=== PATIENT | male | born 1940 | race Caucasian/White ===

== ENCOUNTER 2016-12-18 16:51 | Emergency (ER) | payer MEDICARE, BC ==
[2016-12-18] MEDS ORDERED: ONDANSETRON HCL/PF 2 MG/ML VIAL ONE (17:29)
--- NOTE | 2016-12-18 17:29 | ERNOTE ---
Medical Problem HPI - Narrative Date of Service: 12/18/16 - General Chief Complaint: Nausea/Vomiting Time Seen by Provider: 12/18/16 17:21 Source: patient, family, RN notes reviewed Exam Limitations: no limitations - Immun/Allergies/Home Medications Immunizations: IMMUNIZATION HX Immunizations Up to Date Yes History of Influenza Vaccine More Information Required Hx Pneumococcal Vaccination More Information Required Allergies/Adverse Reactions: Allergies No Known Allergies Allergy (Verified 12/18/16 17:10) Home Medications: HOME MEDICATIONS Acetaminophen [Tylenol] 650 mg PO PRN PRN 01/28/15 [Last Taken Unknown] Aspirin 325 mg PO DAILY 01/28/15 [Last Taken Unknown] Clopidogrel Bisulfate [Plavix] 75 mg PO DAILY 01/28/15 [Last Taken Unknown] Finasteride [Proscar] 5 mg PO DAILY 01/28/15 [Last Taken Unknown] Furosemide [Lasix] 20 mg PO DAILY 01/28/15 [Last Taken Unknown] Insulin Glargine,Hum.rec.anlog [Lantus Solostar] 40 unit SQ HS 01/28/15 [Last Taken Unknown] Insulin Lispro [Humalog Kwikpen U-100] 5 unit SQ 01/28/15 [Last Taken Unknown] Levothyroxine Sodium [Synthroid] 50 mcg PO DAILY 01/28/15 [Last Taken Unknown] Omeprazole [Prilosec] 20 mg PO DAILY 01/28/15 [Last Taken Unknown] Tamsulosin HCl [Flomax] 0.4 mg PO HS 01/28/15 [Last Taken Unknown] Acetaminophen [Tylenol] 1,000 mg PO Q4H PRN #30 tablet 01/30/15 [Last Taken Unknown] Carvedilol [Coreg] 3.125 mg PO BID #60 tablet 01/30/15 [Last Taken Unknown] Lisinopril [Zestril] 5 mg PO DAILY #30 tablet 01/30/15 [Last Taken Unknown] Nitroglycerin [Nitrostat] 0.4 mg SL Q5MIN PRN #7 btl 01/30/15 [Last Taken Unknown] Atorvastatin Calcium [Lipitor] 20 mg PO DAILY 04/24/15 [Last Taken Unknown] Zolpidem Tartrate [Ambien] 5 mg PO HS 04/24/15 [Last Taken Unknown] oxyCODONE HCL/ACETAMINOPHEN [Percocet 5 MG/325 MG] 1 tab PO Q4H PRN #20 tab [Last Taken Unknown] Meclizine HCl [Antivert] 25 mg PO TID PRN #12 tab 12/18/16 [Last Taken Unknown] - History of Present History Narrative: 76 y/o male brought to the ED from home by his son for nausea, vomiting and dizziness that began this morning. He initially thought that his blood sugar was low. He ate a small Snickers bar and then vomited a short time later. He also reports a headache. He denies any diarrhea or abdominal pain. Date (Duration): 12/18/16 Review of Systems - Review of Systems Constitutional: Present: malaise. Absent: recent illness, fever, chills EYE: Present: no symptoms reported ENT: Present: no symptoms reported Respiratory: Absent: shortness of breath, cough, orthopnea Cardiology: Absent: chest pain, palpitations, syncope, edema Gastrointestinal/Abdominal: Present: nausea, vomiting, eating less, drinking less. Absent: diarrhea, constipation, abdominal pain Genitourinary: Present: decreased urinary output. Absent: dysuria, hematuria Musculoskeletal: Present: no symptoms reported Skin: Absent: rash, lesions Neurological: Present: headache, dizziness/light-headedness. Absent: weakness Endocrine: Present: no symptoms reported Hematologic/Lymphatic: Present: no symptoms reported Psych: Present: no symptoms reported - Patient's Past Medical History Patient History - Medical: Diabetes Type 2, Diabetes Type 2 Insulin Dependent, Hypothyroidism, Osteoarthritis Patient History - Cardiac/Respiratory: Peripheral Vascular Disease Patient History - Cancer: Skin Patient History - Surgical Procedures: Back Surgery, Cataracts, Colonoscopy, Cardiac stent, Other Patient History - Other: None - Family History Father Family History - Medical: Family History - Cardiac/Respiratory: Myocardial Infarction - Social History Living Situations: spouse Abuse History: No History of abuse Psych History: No pertinent hx Does anyone smoke in the home?: No Smoking Status: Never smoker Have you smoked in the past 12 months: No Do you dip or chew tobacco: No Alcohol Use: none Drug Use: none - Immunizations Immunizations Up to Date: Yes Hx Pneumococcal Vaccination: More Information Required to Determine History of Influenza Vaccine: More Information Required to Determine Physical Exam - Physical Exam General Appearance: Present: wd/wn, alert, no apparent distress Head Exam: Present: normal inspection Eye Exam: Normal inspection: bilateral, PERRL: bilateral Ears, Nose, Throat: Present: normal ENT inspection Neck: Present: normal inspection, nontender, supple Respiratory: Present: no respiratory distress, normal breath sounds, lungs clear Cardiovascular/Chest: Present: regular rate, rhythm, no murmur Gastrointestinal/Abdominal: Present: nontender, nondistended, soft Back Exam: Present: normal inspection, no CVA tenderness Extremity Exam: Present: normal except - - Left below the knee amputation Neurological Exam: Present: alert, oriented, normal mood/affect, no motor/ sensory deficits Skin Exam: Present: normal color, warm/dry ED Progress - Results and Orders Patient's Lab Results:: I have reviewed the patient's lab results. - Vital Signs Patient's Vital Signs:: I have reviewed the patient's vital signs. Vital Signs: Vital Signs 12/18/16 17:02 Temperature 36.0 C L Pulse Rate 68 Respiratory 15 Rate Blood Pressure 184/76 O2 Sat by Pulse 95 Oximetry - Progress/Reassessment Chief Complaint: Nausea/Vomiting Progress:: Improved Plan - Plan Plan: Symptoms improved with Zofran, IV NS bolus and meclizine, but does still have mild dizziness with movement. Labs show stable renal function and elevated blood glucose. Discussed admission for observation with patient. He cares for his and wants to try to go home. Discharged with meclizine. Reinforced need to return if he starts vomiting again and is not able to tolerate oral intake. Patient in agreement with plan. Departure - Departure Clinical Impression: Dizziness Nausea and vomiting Qualifiers: Vomiting type: unspecified Vomiting Intractability: non-intractable Qualified Code(s): R11.2 - Nausea with vomiting, unspecified Disposition: Home Follow Up Needed Condition: Stable Instructions: Dizziness, [id number]-ln-[id number] Additional Instructions: Rest and drink adequate fluids Monitor your blood sugar Return to ER for worsening symptoms Referrals: Star Kyle MD [Primary Care Provider] - Prescriptions: Meclizine HCl [Antivert] 25 mg PO TID PRN #12 tab PRN Reason: dizziness
[2016-12-18] MEDS: ONDANSETRON HCL/PF 2 MG/ML VIAL IV ONE (17:38)
[2016-12-18 17:39] LABS: Hematocrit 47.4 % (42.0-52.0); Hemoglobin 16.1 gm/dL (13.5-18.0); Mean Cell Volume 89.4 fl (78-100); Mean Corpuscular Hemoglobin 30.4 pg (27-31); Mean Platelet Volume 10.1 fl (6.0-9.5); Neutrophil # 7.7 K/mm3 (1.3-6.0); Neutrophil % 84.7 % (42-75.0); Platelet Count 212 K/mm3 (150-450); Red Cell Distribution Width 13.2 % (11.5-14.0); White Blood Count 9.1 K/mm3 (4.0-10.5)
[2016-12-18] MEDS: NORMAL SALINE 1,000 ML IV ONE (17:44)
[2016-12-18 17:53] LABS: Albumin * 3.9 gm/dl (3.4-5.0); Anion Gap 17.9 mmol/L (6.8-13.8); BUN/Creatinine Ratio 18.1 (9.0-21.6); Bilirubin, Total 1.1 mg/dL (0.0-1.1); Calcium * 9.2 mg/dL (7.9-10.9); Carbon Dioxide 23.2 mmol/L (24-32.6); Potassium 4.1 mmol/L (3.4-4.6); Total Protein 7.6 gm/dL (6.2-8.2)
[2016-12-18] MEDS: ACETAMINOPHEN 325 MG TABLET PO ONE (18:57)
[2016-12-18] MEDS ORDERED: MECLIZINE HCL 25 MG TABLET ONE ×2 (19:41→20:28)
[2016-12-18] MEDS: MECLIZINE HCL 25 MG TABLET PO ONE ×2 (19:42→20:40)
[2016-12-18 19:47] LABS: Urine Bilirubin Negative (NEGATIVE); Urine Blood 25 /ul (NEGATIVE); Urine Ketone Negative (NEGATIVE); Urine Nitrite Negative (NEGATIVE); Urine Protein Negative (NEGATIVE); Urine Specific Gravity 1.015 SP.GR. (1.005-1.030); Urine Urobilinogen Normal (NORMAL); Urine pH 5.5 pH (5.0-7.0)
[2016-12-18 19:56] LABS: Urine Appearance Clear; Urine Color Yellow; Urine WBC None Seen /hpf (0-5)
[2016-12-18 19:57] LABS: Urine Bacteria None Seen; Urine RBC 0-5 /hpf (0-5)
[2016-12-18 20:30] VITALS: BP 188/87
== END 2016-12-18 20:45 | disposition home or self-care (01) ==
LOC: ER 16:51
DX: R11.2 Nausea with vomiting, unspecified (principal); R42 Dizziness and giddiness; Z85.828 Personal history of other malignant neoplasm of skin; Z95.5 Presence of coronary angioplasty implant and graft
CPT/HCPCS: 36415; 80053; 81001; 85025; 96374; 99284; J2405

== ENCOUNTER 2018-10-20 09:37 | Observation (INO) ==
[2018-10-20 12:35] LABS: Hemoglobin 12.4 gm/dL (13.5-18.0); Mean Corpuscular Hemoglobin 31.2 pg (27-31); Mean Corpuscular Hgb Conc 33.5 g/dl (32-36); Neutrophil # 6.3 K/mm3 (1.3-6.0); Neutrophil % 70.7 % (42-75.0); Platelet Count 257 K/mm3 (150-450); Red Blood Count 3.98 M/mm3 (4.7-6.0); Red Cell Distribution Width 13.7 % (11.5-14.0); White Blood Count 8.9 K/mm3 (4.0-10.5)
[2018-10-20 12:46] LABS: ALT 29 U/L (19-67); AST 28 U/L (0-48); Albumin * 3.2 gm/dl (3.4-5.0); Alkaline Phosphatase * 145 U/L (50-170); Bilirubin, Total 1.1 mg/dL (0.0-1.1); Blood Urea Nitrogen 78 mg/dL (6-23); Ca. Corrected For Albumin 9.8 mg/dL (8.4-10.2); Calcium * 9.5 mg/dL (7.9-10.9); Chloride 96 mmol/L (97-106); Glucose * 314 mg/dL (70-110); Sodium 132 mmol/L (132-142); Total Protein 6.9 gm/dL (6.2-8.2)
[2018-10-20 12:48] LABS: Troponin I 0.054 ng/mL (0.00-0.10)
[2018-10-20 12:52] LABS: Hemoglobin A1C 11.9 % (4.00-6.0)
[2018-10-20] MEDS: INSULIN LISPRO 100 UNITS/ML VIAL SC SCH ×3 (13:12→20:38)
[2018-10-20] MEDS: NORMAL SALINE 1,000 ML IV PRN ×2 (13:12→19:04)
[2018-10-20] MEDS ORDERED: NORMAL SALINE 250 ML IV ONE (13:37)
[2018-10-20] MEDS ORDERED: CALCITRIOL 0.25 MCG CAPSULE PO SCH (16:15)
--- NOTE | 2018-10-20 16:39 | PN ---
Tom Note - Interim Date: 10/20/18 Time: 16:30 Narrative: 10/20/18 16:30 I saw Arthur Emery on the medical surgical floor on 10/20/2018 and reviewed available lab results and imaging study. The patient's BUN/creatinine is up to 78 and 3 from 31 and 1.76 on 07/2018. His random blood sugar was 314. His HbA1c was 11.9%. His white blood cell count was 8.9%, with no left shift. His hemoglobin is 12.4 down from 14.1 on 2018, with an MCV of 93, serum ketones were negative, his ABG showed a pH of 7.47/PCO2 29.8/PO2 of 71.8/bicarb of 21/95% saturation. His lactic acid was elevated at 2.5. The patient has acute renal failure ON chronic renal failure and likely prerenal but will do renal ultrasound. His blood pressure went into in the low 90s and we gave him a bolus of 250 mL and increase his IV fluids to 175 mL/h. The patient does admit to diarrhea 2-3 times a day but cannot tell me whether it is a big volume or a small volume diarrhea. His head CT scan showed no acute intracranial process. Will consider doing an MRI of the brain in the morning if mental status does not improve significantly. His chest x-ray showed no acute cardiopulmonary findings. His EKG showed normal sinus rhythm with possible lateral ischemia but his troponin is still within normal limits. His urinalysis and his stool analysis are still pending. Physical therapy saw the patient and is recommending continued physical therapy while in the hospital and recommending home physical therapy. Speech therapy will not be able to see the patient until tomorrow morning. We will start patient on diabetic consistent diet with aspiration precautions if patient will tolerate his p.o. medications without difficulty or choking. I have restarted him on some of his home medications and have put him on basal insulin as well as pre-meal insulin. The patient does not have DKA, no hemorrhagic CVA but still could not rule out ischemic infarct, although unlikely as he has no focal deficit. I still do not have a focus of infection but likely GI, likely viral gastroenteritis from his h/o diarrhea.His low blood pressure, ARF on CRF, lactic acidosis and even AMS could be explained from his dehydration. We will repeat labs in the morning. My clinic visit notes will be my history of present illness for this admission.
[2018-10-20] MEDS ORDERED: ACETAMINOPHEN 500 MG TABLET PO PRN (16:40)
[2018-10-20] MEDS ORDERED: ONDANSETRON HCL/PF 2 MG/ML VIAL IV PRN (16:41)
[2018-10-20 18:50] LABS: Urine Bilirubin Negative (NEGATIVE); Urine Blood Negative /ul (NEGATIVE); Urine Ketone Negative (NEGATIVE); Urine Nitrite Negative (NEGATIVE); Urine Protein Negative (NEGATIVE); Urine Specific Gravity 1.015 SP.GR. (1.005-1.030); Urine Urobilinogen Normal (NORMAL)
[2018-10-20 18:57] LABS: Urine Appearance Clear (CLEAR); Urine Color Yellow
[2018-10-20 18:58] LABS: Urine Bacteria TRACE; Urine Hyaline Cast 0-5 /LPF; Urine RBC 0-5 /hpf (0-5)
[2018-10-20] MEDS ORDERED: TAMSULOSIN HCL 0.4 MG CAP.SR.24H PO SCH (21:00)
[2018-10-20] MEDS ORDERED: FAMOTIDINE 20 MG TABLET PO SCH (21:00)
[2018-10-21] MEDS: NORMAL SALINE 1,000 ML IV PRN ×2 (00:49→06:34)
[2018-10-21 05:36] LABS: Hematocrit 37.3 % (42.0-52.0); Hemoglobin 12.1 gm/dL (13.5-18.0); Mean Cell Volume 94.9 fl (78-100); Mean Corpuscular Hemoglobin 30.8 pg (27-31); Mean Corpuscular Hgb Conc 32.4 g/dl (32-36); Mean Platelet Volume 9.9 fl (8-11.3); Neutrophil # 5.1 K/mm3 (1.3-6.0); Neutrophil % 67.8 % (42-75.0); Platelet Count 196 K/mm3 (150-450); Red Blood Count 3.93 M/mm3 (4.7-6.0); Red Cell Distribution Width 13.8 % (11.5-14.0); White Blood Count 7.5 K/mm3 (4.0-10.5)
[2018-10-21 05:51] LABS: Anion Gap 15.5 mmol/L (6.8-13.8); BUN/Creatinine Ratio 29.3 (9.0-21.6); Carbon Dioxide 23.5 mmol/L (24-32.6); Estimated Creat Clear 29.7
[2018-10-21] MEDS: INSULIN LISPRO 100 UNITS/ML VIAL SC SCH ×2 (06:36→12:06)
[2018-10-21] MEDS ORDERED: LEVOTHYROXINE SODIUM 50 MCG TABLET PO SCH (07:00)
--- NOTE | 2018-10-21 08:00 | PN ---
Tom Note - Interim Date: 10/21/18 Time: 07:58 Narrative: 10/21/18 07:58 patient is AAO X 3. he is not slurring his speech anymore. will continue with IVF to improve renal function. Cr has improved. likely discharge this p.m. to [facility] for PT strengthening exercise. follow up LAW.
[2018-10-21] MEDS ORDERED: CLOPIDOGREL BISULFATE 75 MG TABLET PO SCH (09:00)
[2018-10-21] MEDS ORDERED: METOPROLOL TARTRATE 100 MG TABLET PO SCH (09:00)
[2018-10-21] MEDS ORDERED: INSULIN GLARGINE,HUM.REC.ANLOG 100 UNITS/ML VIAL SC SCH (09:00)
[2018-10-21] MEDS ORDERED: FINASTERIDE 5 MG TABLET PO SCH (09:00)
[2018-10-21] MEDS ORDERED: DULoxetine HCL 20 MG CAPSULE.SA PO SCH (09:00)
[2018-10-21] MEDS ORDERED: ISOSORBIDE MONONITRATE 30 MG TAB.SR.24H PO SCH (09:00)
--- NOTE | 2018-10-21 12:04 | DS ---
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 (6) CAD (coronary artery disease) Problem: Chronic Qualifiers: (7) CRF (chronic renal failure) Problem: Chronic Qualifiers: Chronic kidney disease stage: stage 4 (severe) Qualified Code(s): N18.4 - Chronic kidney disease, stage 4 (severe) (8) Diabetes mellitus Problem: Chronic Qualifiers: Diabetes mellitus type: type 2 Diabetes mellitus intermediate frame tender insulin use: with intermediate frame tender use Diabetes mellitus complication status: with kidney complications Diabetes mellitus complication detail: with chronic kidney disease Chronic kidney disease stage: stage 4 (severe) Qualified Code(s): E11.22 - Type 2 diabetes mellitus with diabetic chronic kidney disease; N18.4 - Chronic kidney disease, stage 4 (severe); Z79.4 - bed bug exterminator (current) use of insulin (9) Hypertension Problem: Chronic Qualifiers: Hypertension type: essential hypertension Qualified Code(s): I10 - Essential (primary) hypertension (10) Hypothyroidism Problem: Chronic Qualifiers: Hypothyroidism type: unspecified Qualified Code(s): E03.9 - Hypothyroidism, unspecified (11) Peripheral vascular disease due to secondary diabetes Problem: Chronic Description of Stay: Arthur Emery is a 77-year-old white male who was admiitted to hospital on 10/20/2018 for AMS and frequent falls. Hepresented to the office today for an E.R. follow up for falls. The patient's blood sugar had been running high at home. It was 345 in the office on the morning of his visit. This was despite him having not eaten and still taking his insulin this morning. The patient had fallen 5-6 times in the last month as per daughter. The patient was confused and was having a hard time following conversation. When asked the patient if he knew where he was, the date, day and year and he was unable to answer these questions. As per daughter she had noticed that he had been slurring his speech and acting confused. He also had been noticed to be having generalized weakness and frequent falls. He was brought to the emergency room on 10/11/2018 because of a fall. They did an x-ray of his ribs and thoracic spine which was negative for acute osseous findings. The daughter is very worried about his safety at home. The patient was then admitted for observation and further evaluation. The patient's BUN/creatinine was up to 78 and 3 from 31 and 1.76 on 07/2018. His random blood sugar was 314. His HbA1c was 11.9%. His white blood cell count was 8.9%, with no left shift. His hemoglobin is 12.4 down from 14.1 on 2018, with an MCV of 93, serum ketones were negative, his ABG showed a pH of 7.47/PCO2 29.8/PO2 of 71.8/bicarb of 21/95% saturation. His lactic acid was elevated at 2.5. The patient has acute renal failure on chronic renal failure and likely prerenal . His blood pressure went into in the low 90s and we gave him a bolus of 250 mL and increase his IV fluids to 175 mL/h. The patient did admit to diarrhea 2-3 times a day but he could not tell me whether it was a big volume or a small volume diarrhea. His head CT scan showed no acute intracranial process. I considered doing an MRI of the brain in the morning if mental status does not improved but it did. His EKG showed normal sinus rhythm with possible lateral ischemia but his troponin is still within normal limits. His urinalysis showed likely a contmainated specimen. He did not have diarrhea overnight. Physical therapy saw the patient and is recommending continued physical therapy while in the hospital and recommending home physical therapy. The patient did not have DKA, no hemorrhagic CVA. His AMS, falls, ARF , lactic acidosis were likely due to dehydration from diarrhea and poor oral intake. He is more awake , alert, oriented this morning and is no longer slurring his speech. He is stable to be discharged to [facility] assisted living for PT and strengthening exercises prior to going home. Procedures Performed: none Results and Findings: Lab Pending Results 10/20/18 12:15: WBC 8.9, RBC 3.98 L, Hgb 12.4 L, Hct 37.0 L, MCV 93.0, MCH 31.2 H, MCHC 33.5, RDW 13.7, Plt Count 257, MPV 10.0, Immature Gran % (Auto) 0.80 H, Immature Gran # (Auto) 0.07 H, Neutrophils % 70.7, Lymphocytes % 17.8 L, Monocytes % 6.2, Eosinophils % 3.0, Basophils % 1.5 H, Nucleated RBC % 0.0, Neutrophils # 6.3 H, Lymphocytes # 1.59, Monocytes # 0.6, Eosinophils # 0.3, Absolute Basophils 0.1 10/20/18 12:15: Sodium 132, Plasma Sodium 135, Potassium 4.0, Chloride 96 L, Carbon Dioxide 24.0, Anion Gap 16.0 H, BUN 78 H D, Creatinine 3.00 H D, Est GFR (Non-Af Amer) 22 L D, BUN/Creatinine Ratio 26.0 H, Random Glucose 314 H, Calcium 9.5, Calcium Adj for Albumin 9.8, Total Bilirubin 1.1, AST 28, ALT 29, Alkaline Phosphatase 145, Troponin I 0.054, Total Protein 6.9, Albumin 3.2 L, Serum Ketones Negative 10/20/18 12:15: Mean Blood Glucose 310, Hemoglobin A1c 11.9 H 10/20/18 12:27: pCO2 29.8 L, pO2 71.8 L, HCO3 21.0, Total CO2 21.9, Base Excess -1.7, ABG pH 7.47 H, ABG O2 Sat (Measured) 95.5 10/20/18 12:35: Lactic Acid, Venous 2.5 H* 10/20/18 17:20: Lactic Acid, Venous 2.0 10/20/18 18:04: Troponin I 0.048 10/20/18 18:39: Urine Color Yellow, Urine Appearance Clear, Urine pH 5.0, Ur Specific [place] 1.015, Urine Protein Negative, Urine Glucose (UA) 500 H, Urine Ketones Negative, Urine Blood Negative, Urine Nitrate Negative, Urine Bilirubin Negative, Urine Urobilinogen Normal, Ur Leukocyte Esterase 75 H, Urine RBC 0-5, Urine WBC 5-10 H, Ur Epithelial Cells 5-10 H, Urine Bacteria Trace, Hyaline Casts 0-5 H 10/21/18 05:25: WBC 7.5, RBC 3.93 L, Hgb 12.1 L, Hct 37.3 L, MCV 94.9, MCH 30.8, MCHC 32.4, RDW 13.8, Plt Count 196, MPV 9.9, Immature Gran % (Auto) 0.80 H, Immature Gran # (Auto) 0.06 H, Neutrophils % 67.8, Lymphocytes % 20.9, Monocytes % 5.8, Eosinophils % 3.4 H, Basophils % 1.3 H, Nucleated RBC % 0.0, Neutrophils # 5.1, Lymphocytes # 1.56, Monocytes # 0.4, Eosinophils # 0.3, Absolute Basophils 0.1 10/21/18 05:25: Sodium 136, Plasma Sodium 140, Potassium 4.0, Chloride 101, Carbon Dioxide 23.5 L, Anion Gap 15.5 H, BUN 68 H, Creatinine 2.32 H D, Est GFR (Non-Af Amer) 29 L D, BUN/Creatinine Ratio 29.3 H, Random Glucose 324 H, Calcium 9.0 Discharge Location: [facility] Disposition: Home self-care Condition: Stable Discharge Activity: Activity as tolerated Discharge Diet: Consistent carbs Prison Therapy: Physicial Therapy, Occupation Therapy Referrals: Star Kyle MD [Primary Care Provider] - Problem Oriented Discharge Instructions to Patient/Family: Dehydration, Elderly, [id number] Additional Patient Instructions (free text): -Please make TCM appointment unless long-term discharge, or if following up with outside provider. Thank you! Noemi @ [facility] [phone] or Jody at [phone]. Patient to administer own medications. PT/OT under Part B. Follow up with PCP in 2 weeks. Follow up with Dr. Kyle on 11-03-18 at 10:15 am. Prescriptions (Any new or edited meds): Furosemide 40 mg PO DAILY #60 tab Isosorbide Mononitrate [Imdur] 30 mg PO DAILY #30 tab.sr.24h Lisinopril 20 mg PO DAILY #60 tab Metoprolol Tartrate [Lopressor] 100 mg PO BID #60 tab Insulin Aspart [Novolog Flexpen] 10 unit SQ AC #3 insuln.pen Acetaminophen [Tylenol] 500 mg PO QID PRN #30 tab PRN Reason: Pain/Fever Complete Home Medications List: Complete Home Medication List: blood sugar diagnostic strips See Dose Instructions .ROUTE .MEDSUPPLY #100 ea 11/27/17 allopurinol 100 mg tablet 200 mg PO DAILY #180 tab 03/10/18 clopidogrel 75 mg tablet 75 mg PO DAILY #90 tab 03/10/18 finasteride 5 mg tablet 5 mg PO DAILY #90 tab 03/10/18 levothyroxine 50 mcg tablet 50 mcg PO DAILY #90 tab 03/10/18 tamsulosin 0.4 mg capsule 0.4 mg PO HS #90 cap 03/10/18 duloxetine 60 mg capsule,delayed release 60 mg PO DAILY #30 cap 08/03/18 potassium chloride ER 10 mEq tablet,extended release 10 meq PO DAILY #30 tab 08/09/18 Atorvastatin Calcium [Lipitor] 20 mg PO HS 10/11/18 tiZANidine HCL [Zanaflex] 2 mg PO TID PRN #20 cap 10/11/18 traMADol HCL [Ultram] 50 mg PO QID PRN #20 tab 10/11/18 Calcitriol 0.25 mcg PO MOWEFR 10/20/18 Colchicine [Colcrys] 0.6 mg PO DAILY 10/20/18 Insulin Detemir [Levemir Flextouch] 60 unit SQ DAILY 10/20/18 Ranitidine HCl [Zantac] 150 mg PO HS 10/20/18 Acetaminophen [Tylenol] 500 mg PO QID PRN #30 tab 10/21/18 Furosemide 40 mg PO DAILY #60 tab 10/21/18 Insulin Aspart [Novolog Flexpen] 10 unit SQ AC #3 insuln.pen 10/21/18 Isosorbide Mononitrate [Imdur] 30 mg PO DAILY #30 tab.sr.24h 10/21/18 Lisinopril 20 mg PO DAILY #60 tab 10/21/18 Metoprolol Tartrate [Lopressor] 100 mg PO BID #60 tab 10/21/18
[2018-10-21 13:34] VITALS: BP 148/64
[2018-10-21] MEDS ORDERED: INSULIN GLARGINE,HUM.REC.ANLOG 100 UNITS/ML VIAL SC ONE (21:00)
== END 2018-10-21 14:15 | disposition home or self-care (01) ==
LOC: CCFAL → MS 09:37
PROVIDERS: ADMIT Internal Medicine; ATTEND Internal Medicine
CPT/HCPCS: 36415; 36600; 70450; 71020; 71046; 76770; 80048; 80053; 81001; 82009; 82803; 83036; 83605; 84484; 85025; 87040; 87081; 92522; 93005; 96360; 96361; 96372; 97110; 97116; 97162; 99215; G0378; G0379; G0463